=== PATIENT | male | born 1985 | race Caucasian/White ===

== ENCOUNTER 2017-03-03 19:28 | Emergency (ER) | payer SELFPAY ==
[2017-03-03 20:04] LABS: Basophils % (Auto) 0.4 % (0.0-1.8); Hematocrit 40.7 % (35.5-45.6); Hemoglobin 13.3 gm/dl (11.8-15.2); Mean Corpuscular HGB Conc 33 % (32-34); Mean Corpuscular Hemoglobin 28 pg (28-32); Mean Corpuscular Volume 87 fl (84-94); Platelet Count 215 K/mm3 (140-440); Red Cell Distribution Width 13.8 % (13.2-15.2); White Blood Count 9.3 K/mm3 (4.5-11.0)
[2017-03-03 20:23] LABS: Alanine Aminotransferase 21 units/L (7-56); Albumin 4.3 g/dL (3.9-5); Alkaline Phosphatase 47 units/L (35-129); Anion Gap 21 mmol/L; BUN/Creatinine Ratio 27.14; Blood Urea Nitrogen 19 mg/dL (9-20); Calcium 9.1 mg/dL (8.4-10.2); Carbon Dioxide 22 mmol/L (22-30); Chloride 101.2 mmol/L (98-107); Glucose 84 mg/dL (75-100); Lipase 61 units/L (13-60); Potassium 4.2 mmol/L (3.6-5.0); Sodium 140 mmol/L (137-145); Total Protein 8.4 g/dL (6.3-8.2)
[2017-03-03 21:16] LABS: Bilirubin,Urine NEG (Negative); Blood,Urine NEG (Negative); Ketones,Urine NEG (Negative); Leukocyte Esterase,Urine SM (Negative); Mucus,Urine FEW /HPF; Nitrite,Urine NEG (Negative); Protein,Urine <15 mg/dL mg/dL (Negative); Urobilinogen,Urine < 2.0 mg/dL (<2.0)
[2017-03-04 01:19] VITALS: BP 121/82
== END 2017-03-04 01:24 | disposition left against medical advice (07) ==
LOC: ED 19:28
DX: R10.9 Unspecified abdominal pain (principal); Z53.21 Procedure and treatment not carried out due to patient leaving prior to being seen by health care provider
CPT/HCPCS: 36415; 80053; 81001; 83690; 84703; 85025

== ENCOUNTER 2021-07-18 08:40 | Emergency (ER) | payer SELFPAY ==
[2021-07-18] MEDS ORDERED: MORPHINE 4 MG/1 ML INJ IV ONE (08:52)
[2021-07-18] MEDS ORDERED: ACETAMINOPHEN 325 MG TAB PO STA (08:52)
[2021-07-18] MEDS ORDERED: ONDANSETRON 4 MG/2 ML INJ IV ONE (08:52)
--- NOTE | 2021-07-18 08:54 | Emergency Department Report ---
ED General Adult HPI - General Chief complaint: Abdominal Pain Stated complaint: abdominal pain PUI?: No Time Seen by Provider: 07/18/21 08:45 Source: patient, EMS ( EMS documentation not available at time of chart dictat mayra ), RN notes reviewed Mode of arrival: Stretcher Limitations: No Limitations - History of Present Illness Initial comments: The patient was evaluated in the emergency department for symptoms described in the history of present illness. He/she was evaluated in the context of the global COVID-19 pandemic, which necessitated consideration that the patient might be at risk for infection with the virus that causes COVID-19. Institutional protocols and algorithms that pertain to the evaluation of patients at risk for COVID-19 are in a state of rapid change based on information released by regulatory bodies including the CDC and federal and state organizations. These policies and algorithms were followed during the patient's care in the emergency department. Please note that these policies, procedures and recommendations changed on a rapid basis. Please note that this provider is conversant in Indonesian. Patient is a 36-year-old female. She reports that she is 3, para 2. She believes that she is today. She indicates that she is likely 7 weeks . She presents to the ER today with complaint of 2 weeks epigastric and right upper quadrant abdominal cramping, nausea, vomiting, possible dysuria. She is not established outpatient care. She has not taken any pain medication or nausea medication. She denies vaginal bleeding. Symptoms constant for the past 2 weeks. She reports that she was seen at [facility] earlier on this week for similar symptoms. EMS reports normal vital signs in the field. She is not sure if she had any unin tentional weight loss -: Gradual, week(s) Location: abdomen Radiation: non-radiation Severity scale (0 -10): 8 Consistency: constant Improves with: rest Worsens with: eating - Related Data Previous Rx's Medication Instructions Recorded Last Taken Type Doxylamine Succinate/Vit B6 1 each PO QHS PRN #30 tablet. 07/18/21 Unknown Rx [Joselo Srivastava 10-10 mg Tablet] Jason Root [Jason] 250 mg PO QID PRN #30 capsule 07/18/21 Unknown Rx Vit-Fe Fumar-FA [ 1 tab PO QDAY #30 tablet 07/18/21 Unknown Rx Vitamin] Allergies Allergy/AdvReac Type Severity Reaction Status Date / Time No Known Allergies Allergy Verified 07/18/21 12:54 ED Review of Systems ROS: Stated complaint: abdominal pain Other details as noted in HPI Constitutional: denies: fever Eyes: denies: eye discharge ENT: denies: epistaxis Respiratory: denies: cough Cardiovascular: denies: chest pain Gastrointestinal: abdominal pain, nausea, vomiting Genitourinary: as per HPI Neurological: weakness Hematological/Lymphatic: denies: easy bleeding ED Past Medical Hx - Past Medical History Previous Medical History?: No - Social History Smoking Status: Never Smoker Substance Use Type: None - Medications Home Medications: Home Medications Medication Instructions Recorded Confirmed Last Taken Type Doxylamine Succinate/Vit B6 1 each PO QHS PRN #30 tablet. 07/18/21 Unknown Rx [Diclegis Dr 10-10 mg Tablet] Jason Root [Jason] 250 mg PO QID PRN #30 capsule 07/18/21 Unknown Rx Vit-Fe Fumar-FA [ 1 tab PO QDAY #30 tablet 07/18/21 Unknown Rx Vitamin] ED Physical Exam - General Limitations: No Limitations General appearance: alert, in no apparent distress - Head Head exam: Present: atraumatic, normocephalic - Eye Eye exam: Present: normal appearance, EOMI. Absent: nystagmus - ENT ENT exam: Present: normal exam, normal orophraynx, mucous membranes moist, normal external ear exam - Neck Neck exam: Present: normal inspection, full ROM. Absent: tenderness, meningismus - Respiratory Respiratory exam: Present: normal lung sounds bilaterally. Absent: respiratory distress, wheezes, rales, rhonchi, stridor, decreased breath sounds - Cardiovascular Cardiovascular Exam: Present: regular rate, normal rhythm, normal heart sounds. Absent: bradycardia, tachycardia, irregular rhythm, systolic murmur, diastolic murmur, rubs, gallop - GI/Abdominal GI/Abdominal exam: Present: soft, tenderness, other (There is right upper quadrant tenderness to deep palpation. There is negative Joiner sign.). Ab sent: distended, guarding, rebound, rigid, pulsatile mass - Extremities Exam Extremities exam: Present: normal inspection, full ROM, other (2+ pulses noted in the bilateral upper and lower extremities. There is no palpable cord. negative Homans sign. Muscular compartments are soft. The pelvis is stable.). Absent: pedal edema, calf tenderness - Back Exam Back exam: Present: normal inspection, full ROM. Absent: tenderness, CVA tenderness (R), CVA tenderness (L), paraspinal tenderness, vertebral tenderness - Neurological Exam Neurological exam: Present: alert, oriented X3, other (No facial droop. Tongue midline. Extraocular movements intact bilaterally. Facial sensation intact to light touch in V1, V2, V3 distribution bilaterally. 5 and a 5 strength in 4 extremities. Sensation intact to light touch in 4 extremities.). Absent: motor sensory deficit - Psychiatric Psychiatric exam: Present: normal affect, normal mood - Skin Skin exam: Present: warm, dry, intact, normal color. Absent: rash ED Course Vital Signs 07/18/21 07/18/21 07/18/21 08:41 09:02 09:03 Temperature 98.8 F Pulse Rate 92 H Respiratory 16 16 Rate Blood Pressure 154/86 [Left] O2 Sat by Pulse 97 95 Oximetry 07/18/21 12:53 Temperature 97.9 F Pulse Rate 72 Respiratory 18 Rate Blood Pressure 114/62 [Left] O2 Sat by Pulse 100 Oximetry - Reevaluation(s) Reevaluation #1: 07/18/21 09:59 Differential diagnosis, including but not limited to: Nausea and vomiting , abdominal wall strain, reflux, urinary tract infection, biliary colic Assessment and plan: 36-year-old female, who was afebrile, with reassuring vital signs, with 2 weeks of nausea and vomiting, and associated right upper quadrant abdominal pain. Suspect muscular wall pain, in the context of nausea and vomiting of . Her laboratory studies are not suggestive of pancreatitis or acute biliary pathology. Minimal dehydration is consistent with history of nausea and vomiting. Treat this patient with Tylenol, Zofran, morphine, D5 half-normal, obtain urinalysis, right upper quadrant ultrasound, and ultrasound. Obtain type and screen. Reassess after data points have resulted. 07/18/21 12:50 The patient is reassessed. Laboratory studies reviewed and appreciated. They a re essentially unremarkable. No active vomiting at this time. Able to tolerate liquid feeds. Sonographic imaging shows no acute or emergent surgical pathology. IUP is confirmed. Belly soft on repeat exam. Explained findings to patient, and also explained natural history of nausea and vomiting of . Patient indicates that she is reliable to follow-up as an outpatient. Return precautions reviewed. ED Medical Decision Making - Lab Data Result diagrams: 07/18/21 09:05 07/18/21 09:05 Vital Signs 07/18/21 07/18/21 07/18/21 08:41 09:02 09:03 Temperature 98.8 F Pulse Rate 92 H Respiratory 16 16 Rate Blood Pressure 154/86 [Left] O2 Sat by Pulse 97 95 Oximetry Lab Results 07/18/21 07/18/21 Range/Units 09:05 09:05 WBC 10.9 (4.5-11.0) K/mm3 RBC 5.11 H (3.65-5.03) M/mm3 Hgb 14.0 (10.1-14.3) gm/dl Hct 43.5 H (30.3-42.9) % MCV 85 (79-97) fl MCH 27 L (28-32) pg MCHC 32 (30-34) % RDW 13.5 (13.2-15.2) % Plt Count 225 (140-440) K/mm3 Lymph % (Auto) 7.3 L (13.4-35.0) % Moca % (Auto) 5.2 (0.0-7.3) % Eos % (Auto) 1.0 (0.0-4.3) % Baso % (Auto) 0.1 (0.0-1.8) % Lymph # (Auto) 0.8 L (1.2-5.4) K/mm3 Moca # (Auto) 0.6 (0.0-0.8) K/mm3 Eos # (Auto) 0.1 (0.0-0.4) K/mm3 Baso # (Auto) 0.0 (0.0-0.1) K/mm3 Seg Neutrophils % 86.4 H (40.0-70.0) % Seg Neutrophils # 9.5 H (1.8-7.7) K/mm3 Sodium 139 (137-145) mmol/L Potassium 4.5 (3.6-5.0) mmol/L Chloride 105.7 (98-107) mmol/L Carbon Dioxide 20 L (22-30) mmol/L Anion Gap 18 mmol/L BUN 12 (7-17) mg/dL Creatinine 0.6 (0.6-1.2) mg/dL Estimated GFR > 60 ml/min BUN/Creatinine Ratio 20 % Glucose 101 H (65-100) mg/dL Calcium 8.8 (8.4-10.2) mg/dL Total Bilirubin 0.30 (0.1-1.2) mg/dL Direct Bilirubin < 0.2 (0-0.2) mg/dL Indirect Bilirubin 0.1 mg/dL AST 14 (5-40) units/L ALT 14 (7-56) units/L Alkaline Phosphatase 71 (35-129) units/L Total Protein 8.3 H (6.3-8.2) g/dL Albumin 4.1 (3.9-5) g/dL Albumin/Globulin Ratio 1.0 % Lipase 29 (13-60) units/L - Radiology Data Radiology results: pending, report reviewed, image reviewed ULTRASOUND ABDOMEN, LIMITED (RIGHT UPPER QUADRANT) INDICATION: ruq pain n/v, COMPARISON: None available. LIMITATIONS: None FINDINGS: Pancreas: Visualized portion shows no significant abnormality. Liver: Mild fatty infiltration is seen without significant enlargement. Liver measures 16.1 cm in length. In the posterior aspect of the lateral segment of the left lobe an ovoid 3.6 cm hyperechoic area is seen which probably is a small hemangioma. Gallbladder: A mildly echogenic focus without definite shadowing or reported mobility is seen which could be a low-density gallstone but may be a polyp. No gallbladder wall thickening is seen. Bile ducts: Normal. Common Bile Duct measures 2 mm. Right Kidney: Visualized portions show no abnormality. Free fluid: None. Additional Findings: None. IMPRESSION: 1. No acute abnormalities are seen. 2. Small gallbladder polyp versus low-density calculus 3. Mild fatty infiltration of the liver. Probable small hemangioma is noted in the left lobe. Recommend follow-up. Signer Name: Singh Yates MD Signed: 07/18/2021 11:00 AM Workstation Name: [id number] OB transvaginal INDICATION / CLINICAL INFORMATION: abd pain n/v. TECHNIQUE: Transvaginal. COMPARISON: None available. FINDINGS: UTERUS: Appears within normal limits. GESTATIONAL SAC: Well-defined oval shape and intrauterine in location. YOLK SAC: No significant abnormality. EMBRYO/FETUS: - [place]-Rump Length = 1.9 cm - Heart Rate, beats per minute (if present) = 133 beats per minute ADNEXA: No significant abnormality. FREE FLUID: None. ADDITIONAL FINDINGS: None. IMPRESSION: 1. Single, living intrauterine with estimated sonographic age of 7 weeks 3 days. Signer Name: Dane Bunch MD Signed: 07/18/2021 10:54 AM Workstation Name: [id number] Critical care attestation.: If time is entered above; I have spent that time in minutes in the direct care of this critically ill patient, excluding procedure time. ED Disposition Clinical Impression: Nausea and vomiting during , Right upper quadrant abdominal pain, Dehydration Disposition: HOME / SELF CARE / HOMELESS Is pt being admited?: No Does the pt Need Aspirin: No Condition: Good Instructions: Morning Sickness, Abdominal Pain (ED) Additional Instructions: As we discussed, patient is likely experiencing nausea and vomiting associated with . Avoid consumption of heavy foods. Advance diet as tolerated. Start with a bland diet. Patient may take Tylenol/acetaminophen [id number] as needed for physical pain. Do not take Motrin, ibuprofen, Naprosyn, Aleve or aspirin. Avoid consumption of heavy and spicy foods, tobacco, alcohol and smoke products. please follow-up with an outpatient as soon asn possible [facility] doctor to initiate outpatient care. Please take the jason, Diclegis medications as needed for nausea and vomiting associated , and take the vitamins on a daily basis as directed. Please have your primary care doctor or foxing cutting machine operator contact the medical record department, and obtain copies of laboratory studies and imaging studies, to follow-up on nonemergent incidental abnormal findings. Please return to the emergency room right away with new pain, worsened pain, migration of pain, projectile vomiting, change in mental status, confusion, inability tolerate liquid feeds, new, worsened or different symptoms not present on the initial emergency room evaluation For the patient's convenience, local [facility] SERVICE [facility]ITER physicians have been listed here that she may follow-up with Coretta comentamos, es probable que la paciente experimente nuseas y vmitos asociados con el embarazo. Evitar el consumo de alimentos pesados. Avanzar en la dieta segn tolerancia. Comience con lalo dieta blanda. El paciente puede tete Tylenol/acetaminofn de venta wojciech segn sea necesario para el dolor fsico. No tome Motrin, ibuprofeno, Naprosyn, Aleve o aspirina. Evitar el consumo de alimentos pesados ??y picantes, tabaco, alcohol y productos de humo. grant un seguimiento con un mdico ambulatorio lo antes posible para iniciar la atencin ambulatoria. [place] los medicamentos de jengibre, Diclegis segn sea necesario para las nuseas y los vmitos asociados con el embarazo, y tome las vitaminas prenatales diariamente segn las indicaciones. [place] mdico de atencin primaria o gineclogo que se comunique con el departamento de registros mdicos y obtenga copias de los estudios de laboratorio y de imgenes para hacer un seguimiento de los hallazgos anormales incidentales que no pineda de emergencia. Regrese a la heather de emergencias de inmediato con dolor nuevo, empeoramiento del dolor, migracin del dolor, vmitos proyectiles, cambio en el estado mental, confusin, incapacidad para tolerar alimentos lquidos, sntomas nuevos, empeorados o diferentes que no estaban presentes en la evaluacin inicial de la heather de emergencias. Para comodidad de la paciente, aqu se incluyeron mdicos obstetras/gineclogos locales para que isaura pueda hacer un seguimient Prescriptions: Doxylamine Succinate/Vit B6 [Joselo Srivastava 10-10 mg Tablet] 1 each PO QHS PRN #30 tablet. PRN Reason: Nausea Jason Root [Jason] 250 mg PO QID PRN #30 capsule PRN Reason: Nausea Vit-Fe Fumar-FA [ Vitamin] 1 tab PO QDAY #30 tablet Referrals: [facility] [Provider Group] - 3-5 Days [facility] [Provider Group] - 3-5 Days [facility] [Provider Group] - 3-5 Days Forms: Work/School Release Form(ED) Print Language: MACEDONIAN
[2021-07-18] MEDS ORDERED: D5W/0.45% NACL 1,000 ML IV SCH (09:00)
[2021-07-18 09:28] LABS: Basophils % (Auto) 0.1 % (0.0-1.8); Eosinophils # (Auto) 0.1 K/mm3 (0.0-0.4); Hematocrit 43.5 % (30.3-42.9); Lymphocytes # (Auto) 0.8 K/mm3 (1.2-5.4); Lymphocytes % (Auto) 7.3 % (13.4-35.0); Mean Corpuscular HGB Conc 32 % (30-34); Mean Corpuscular Volume 85 fl (79-97); Monocytes # (Auto) 0.6 K/mm3 (0.0-0.8); Monocytes % (Auto) 5.2 % (0.0-7.3); Platelet Count 225 K/mm3 (140-440); Red Blood Count 5.11 M/mm3 (3.65-5.03); Red Cell Distribution Width 13.5 % (13.2-15.2)
[2021-07-18 09:49] LABS: Alanine Aminotransferase 14 units/L (7-56); Albumin 4.1 g/dL (3.9-5); Blood Urea Nitrogen 12 mg/dL (7-17); Calcium 8.8 mg/dL (8.4-10.2); Hemolysis Index 11
[2021-07-18 09:52] LABS: BUN/Creatinine Ratio 20; Bilirubin,Direct < 0.2 mg/dL (0-0.2)
--- NOTE | 2021-07-18 11:43 | Ultrasound Report ---
ULTRASOUND OBSTETRIC INDICATION / CLINICAL INFORMATION: abd pain n/v. Clinical Gestational Age (GA) in weeks, days: 7, 1 TECHNIQUE: Transabdominal. COMPARISON: None available. FINDINGS: GESTATIONAL SAC: Well-defined oval shape and intrauterine in location with a mean sac diameter of 2.3 cm spotting to a 7 week 2 day gestation. YOLK SAC: Not seen EMBRYO/FETUS: Not seen FREE FLUID: None. ADDITIONAL FINDINGS: None. IMPRESSION: 1. There is a well-defined gestational sac with a mean sac diameter of 2.3 cm corresponding to a 7 we ek 2 day gestation. No pole is identified. The mean sac diameter is too small to establish viab ility. Recommend repeat ultrasound in 7-10 days. Signer Name: Jerman Arana DO Signed: 07/18/2021 11:39 AM Workstation Name: [id number]
--- NOTE | 2021-07-18 11:59 | Ultrasound Report ---
US OB transvaginal INDICATION / CLINICAL INFORMATION: abd pain n/v. TECHNIQUE: Transvaginal. COMPARISON: None available. FINDINGS: UTERUS: Appears within normal limits. GESTATIONAL SAC: Well-defined oval shape and intrauterine in location. YOLK SAC: No significant abnormality. EMBRYO/FETUS: - [place]-Rump Length = 1.9 cm - Heart Rate, beats per minute (if present) = 133 beats per minute ADNEXA: No significant abnormality. FREE FLUID: None. ADDITIONAL FINDINGS: None. IMPRESSION: 1. Single, living intrauterine with estimated sonographic age of 7 weeks 3 days. Signer Name: Dane Bunch MD Signed: 07/18/2021 11:54 AM Workstation Name: [id number]
[2021-07-18 12:01] LABS: Bilirubin,Urine NEG (Negative); Blood,Urine NEG (Negative); Color,Urine Yellow (Yellow); Mucus,Urine FEW /HPF; RBC,Urine < 1.0 /HPF (0.0-6.0); Urobilinogen,Urine < 2.0 mg/dL (<2.0)
--- NOTE | 2021-07-18 12:05 | Ultrasound Report ---
ULTRASOUND ABDOMEN, LIMITED (RIGHT UPPER QUADRANT) INDICATION: ruq pain n/v, COMPARISON: None available. LIMITATIONS: None FINDINGS: Pancreas: Visualized portion shows no significant abnormality. Liver: Mild fatty infiltration is seen without significant enlargement. Liver measures 16.1 cm in [facility]. In the posterior aspect of the lateral segment of the left lobe an ovoid 3.6 cm hyperechoic area is seen which probably is a small hemangioma. Gallbladder: A mildly echogenic focus without definite shadowing or reported mobility is seen which c ould be a low-density gallstone but may be a polyp. No gallbladder wall thickening is seen. Bile ducts: Normal. Common Bile Duct measures 2 mm. Right Kidney: Visualized portions show no abnormality. Free fluid: None. Additional Findings: None. IMPRESSION: 1. No acute abnormalities are seen. 2. Small gallbladder polyp versus low-density calculus 3. Mild fatty infiltration of the liver. Probable small hemangioma is noted in the left lobe. Recomme nd follow-up. Signer Name: Singh Yates MD Signed: 07/18/2021 12:00 PM Workstation Name: [id number]
[2021-07-18 12:55] VITALS: BP 114/62
== END 2021-07-18 13:22 | disposition home or self-care (01) ==
LOC: EDSEX → ED 08:40
DX: O21.0 Mild hyperemesis gravidarum (principal); E86.0 Dehydration; R10.11 Right upper quadrant pain; O99.281 Endocrine, nutritional and metabolic diseases complicating pregnancy, first trimester; Z3A.01 Less than 8 weeks gestation of pregnancy
CPT/HCPCS: 36415; 76705; 76801; 76817; 80048; 80076; 81001; 83690; 84702; 85025; 86850; 86900; 86901; 87086; 96374; 96375; 99284; J2270; J2405